=== PATIENT | female | born 1970 | race Caucasian/White ===

== ENCOUNTER → 2016-07-14 | Outpatient (CLI) | payer BC ==
[~2016-07-14] MED LIST: CICL80AE INH; FAMO10TA10 PO; LEVAAER2 INH; MISC4CAP PO; NAPR1TAB9 PO; RIZA10TA19 PO; TOPI25TA99 PO; [UNRECOGNIZED DRUG - OTHER] PO
--- NOTE | 2016-07-15 12:24 | MAMMOGRAPHY REPORT ---
BILATERAL DIGITAL SCREENING MAMMOGRAM TOMOSYNTHESIS WITH CAD: 07/14/2016 CLINICAL HISTORY: Routine screening examination. TECHNIQUE: Breast tomosynthesis in addition to standard 2D mammography was performed. Current study was also evaluated with a Computer Aided Detection (CAD) system. COMPARISON: Comparison is made to exams dated: 07/11/2015 mammogram, 08/25/2013 mammogram, 08/19/2012 m ammogram, and 08/14/2011 mammogram - [facility]. BREAST COMPOSITION: The tissue of both breasts is heterogeneously dense, which may obscure small ma sses. FINDINGS: There are multiple bilateral circumscribed subcentimeter masses scattered throughout the b reast. There are scattered bilateral round and punctate benign-appearing microcalcifications. No s uspicious spiculated or irregular mass, architectural distortion or cluster of suspicious microcalci fications is seen. IMPRESSION: ACR BI-RADS CATEGORY 1: NEGATIVE There is no mammographic evidence of malignancy. A 1 year screening mammogram is recommended. The p atient will receive written notification of the results. Approximately 10% of breast cancers are not detected with mammography. A negative mammographic repor t should not delay biopsy if a clinically suggestive mass is present. Adriana Bowie M.D. ay/:07/14/2016 21:19:50 Branch Operations Specialist: Sade SHANE)(M), [facility] letter sent: Normal 1/2 BI-RADS Code: ACR BI-RADS Category 1: Negative
== END | disposition home or self-care (01) ==
LOC: C.MAMM 08:36
PROVIDERS: ATTEND Obstetrics & Gynecology
DX: Z12.31 Encounter for screening mammogram for malignant neoplasm of breast (principal)

== ENCOUNTER → 2017-03-09 | Outpatient (CLI) | payer BC ==
[~2017-03-09] MED LIST changes: -FAMO10TA10 PO; +FAMO10TA16 PO
== END | disposition home or self-care (01) ==
LOC: C.PAPS 16:27
PROVIDERS: ATTEND Obstetrics & Gynecology
DX: Z01.419 Encounter for gynecological examination (general) (routine) without abnormal findings (principal); D25.9 Leiomyoma of uterus, unspecified

== ENCOUNTER → 2017-07-15 | Outpatient (CLI) | payer OTHER ==
--- NOTE | 2017-07-15 15:54 | MAMMOGRAPHY REPORT ---
BILATERAL DIGITAL SCREENING MAMMOGRAM TOMOSYNTHESIS WITH CAD: 07/15/2017 CLINICAL HISTORY: Routine screening. Patient has no complaints. TECHNIQUE: Breast tomosynthesis in addition to standard 2D mammography was performed. Current study was also evaluated with a Computer Aided Detection (CAD) system. COMPARISON: Comparison is made to exams dated: 07/14/2016 mammogram, 07/11/2015 mammogram, 06/28/2014 u ltrasound, 06/28/2014 mammogram, 08/25/2013 mammogram, and 08/19/2012 mammogram - [facility]. BREAST COMPOSITION: The tissue of both breasts is heterogeneously dense, which may obscure small mas ses. FINDINGS: There are scattered and loosely grouped benign-appearing punctate microcalcifications bilat erally. Multiple bilateral circumscribed subcentimeter rounded oval masses scattered in the breasts, which is a typically benign mammographic pattern, likely representing fibrocystic change. No suspic ious spiculated or irregular mass, architectural distortion or cluster of new, suspicious microcalcif ications is seen. IMPRESSION: ACR BI-RADS CATEGORY 1: NEGATIVE There is no mammographic evidence of malignancy. A 1 year screening mammogram is recommended. The pa tient will receive written notification of the results. Approximately 10% of breast cancers are not detected with mammography. A negative mammographic report should not delay biopsy if a clinically suggestive mass is present. Adriana Bowie M.D. ay/:07/15/2017 09:18:20 Nurse Midwife/Clinical Instructor: Karen DIALLO(Huyen)(Anjel), [facility] letter sent: Normal 1/2 BI-RADS Code: ACR BI-RADS Category 1: Negative
== END | disposition home or self-care (01) ==
LOC: C.MAMM 08:20
PROVIDERS: ATTEND Obstetrics & Gynecology
DX: Z12.31 Encounter for screening mammogram for malignant neoplasm of breast (principal)

== ENCOUNTER → 2017-07-16 | Outpatient (CLI) | payer OTHER ==
--- NOTE | 2017-07-16 10:12 | DIAGNOSTIC IMAGING REPORT ---
CHEST 2 VIEWS ROUTINE CLINICAL HISTORY: Cough. COMPARISON STUDY: Chest radiograph June 06, 2015. FINDINGS: Lung volumes are normal. Lungs are clear. No pneumothorax or pleural effusion is noted. Cardiac size is normal. Mediastinal contours are normal. There is no evidence for pulmonary edema. There are cholecystectomy clips. IMPRESSION: No acute cardiopulmonary findings. Electronically signed by: Dimitris Chacko M.D. 07/16/2017 10:11 AM Dictated Date/Time: 07/16/2017 10:10 AM
[2017-07-16 12:35] LABS: INFLUENZA B ANTIGEN Neg for Influ B (NEG)
== END | disposition home or self-care (01) ==
LOC: C.RAD1850 09:56
PROVIDERS: ATTEND Physician Assistant Medical
DX: R05 Cough (principal); R68.89 Other general symptoms and signs